=== PATIENT | female | born 1980 | race Caucasian/White ===

== ENCOUNTER 2016-12-03 06:00 | Inpatient (IN) | payer OTHER ==
[~2016-12-03] VITALS: Ht 163 cm; Wt 74.8 kg
[~2016-12-03 06:00] MED LIST: CITRIC ACID/SODIUM CITRATE 30 ML SOLUTION UDCUP PO ONE; METOCLOPRAMIDE HCL 5 MG/ML 2 ML VIAL IVP ONE; RINGERS SOLUTION,LACTATED 1,000 ML IV ONE
[2016-12-03] MEDS ORDERED: METH250T11 PO (06:20)
[2016-12-03] MEDS ORDERED: PREN-154 PO (06:21)
[2016-12-03 06:40] LABS: BASOPHILS # (AUTO) 0.04 K/uL (0.00-0.20); BASOPHILS % (AUTO) 0.4 % (0.0-2.0); EOSINOPHILS # (AUTO) 0.06 K/uL (0.00-0.70); EOSINOPHILS % (AUTO) 0.73 % (1.0-6.0); HEMATOCRIT 34.4 % (36-46); HEMOGLOBIN 11.6 g/dL (12.0-16.0); LYMPHOCYTES # (AUTO) 1.9 K/uL (1.0-4.8); LYMPHOCYTES % (AUTO) 23.8 % (22.0-44.0); MEAN CORPUSCULAR HEMOGLOBIN 30.2 pg (26.0-34.0); MEAN CORPUSCULAR HGB CONC 33.8 G/dL (31.0-37.0); MEAN CORPUSCULAR VOLUME 89 fL (80-100); MONOCYTES # (AUTO) 0.5 K/uL (0.1-1.0); MONOCYTES % (AUTO) 5.8 % (2.0-9.0); NEUTROPHILS # (AUTO) 5.7 K/uL (1.8-7.7); NEUTROPHILS % (AUTO) 69.3 % (40.0-70.0); PLATELET COUNT (AUTO) 190 K/uL (150-450); RED BLOOD CELL COUNT(AUTO) 3.85 MIL/uL (4.00-5.20); RED CELL DISTRIBUTION WIDTH 13.8 % (11.5-14.5); WHITE BLOOD COUNT (AUTO) 8.2 K/uL (4.5-11.0)
[2016-12-03 07:28] VITALS: BP 137/92
[2016-12-03] MEDS ORDERED: FentaNYL CITRATE-PF 100 MCG/2 ML VIAL ONE (11:21)
[2016-12-03] MEDS ORDERED: CeFAZolin 2 GM/DEXTROSE 50 ML IV ONE (11:21)
[2016-12-03] MEDS ORDERED: MORPHINE SULFATE/PF 0.5 MG/ML 10 ML AMP ONE (11:22)
[2016-12-03] MEDS ORDERED: OXYTOCIN 10 UNITS/ML VIAL IM ONE (12:00)
[2016-12-03] MEDS ORDERED: PHENYLEPHRINE HCL 10 MG/ML VIAL IVP ONE (12:00)
[2016-12-03] MEDS ORDERED: KETOROLAC TROMETHAMINE 60 MG/2 ML VIAL IM ONE (12:00)
[2016-12-03] MEDS ORDERED: ONDANSETRON HCL 4 MG/2 ML VIAL IVP ONE (12:00)
[2016-12-03] MEDS ORDERED: NALOXONE HCL 0.4 MG/ML VIAL IVP PRN (13:30)
[2016-12-03] MEDS ORDERED: FentaNYL CITRATE-PF 100 MCG/2 ML VIAL IVP PRN ×4 (13:30)
[2016-12-03] MEDS ORDERED: MEPERIDINE-PF 25 MG/ML SYRINGE IVP PRN (13:30)
[2016-12-03] MEDS ORDERED: DiphenhydrAMINE HCL 50 MG/ML VIAL IVP PRN ×2 (13:30)
[2016-12-03] MEDS ORDERED: ONDANSETRON HCL 4 MG/2 ML VIAL IVP PRN ×2 (13:30)
[2016-12-03] MEDS ORDERED: DEXAMETHASONE SOD PHOS 4 MG/ML VIAL IVP PRN (13:30)
[2016-12-03] MEDS ORDERED: NALBUPHINE HCL 10 MG/ML VIAL IVP PRN ×3 (13:30)
[2016-12-03] MEDS ORDERED: PROMETHAZINE HCL 12.5 MG in SODIUM CHLORIDE 0.9% 50 ML IV PRN (13:30)
[2016-12-03] MEDS ORDERED: GLYCERIN/WITCH HAZEL LEAF 40 PADS JAR TP PRN (14:00)
[2016-12-03] MEDS ORDERED: RINGERS SOLUTION,LACTATED 1,000 ML IV ONE (14:43)
[2016-12-03] MEDS: METHYLDOPA 250 MG TABLET PO SCH (16:27)
[2016-12-03] MEDS: DEXTROSE 5%-0.45% SODIUM CHL 1,000 ML IV SCH (18:00)
[2016-12-03] MEDS: OXYTOCIN 20 UNITS in RINGERS SOLUTION,LACTATED 1,000 ML IV SCH (18:27)
[2016-12-03] MEDS: KETOROLAC TROMETHAMINE 30 MG/ML VIAL IVP SCH (19:44)
[2016-12-03] MEDS ORDERED: OXYGEN THERAPY IH SCH ×4 (20:00)
[2016-12-04] MEDS: OXYTOCIN 20 UNITS in RINGERS SOLUTION,LACTATED 1,000 ML IV SCH (00:45)
[2016-12-04] MEDS: METHYLDOPA 250 MG TABLET PO SCH ×3 (00:45→16:46)
[2016-12-04] MEDS: KETOROLAC TROMETHAMINE 30 MG/ML VIAL IVP SCH (01:46)
[2016-12-04 06:46] LABS: BASOPHILS # (AUTO) 0.03 K/uL (0.00-0.20); BASOPHILS % (AUTO) 0.2 % (0.0-2.0); EOSINOPHILS # (AUTO) 0.03 K/uL (0.00-0.70); EOSINOPHILS % (AUTO) 0.23 % (1.0-6.0); HEMATOCRIT 28.4 % (36-46); HEMOGLOBIN 9.5 g/dL (12.0-16.0); LYMPHOCYTES # (AUTO) 1.4 K/uL (1.0-4.8); LYMPHOCYTES % (AUTO) 12.5 % (22.0-44.0); MEAN CORPUSCULAR HEMOGLOBIN 30.6 pg (26.0-34.0); MEAN CORPUSCULAR HGB CONC 33.3 G/dL (31.0-37.0); MEAN CORPUSCULAR VOLUME 92 fL (80-100); MONOCYTES # (AUTO) 0.4 K/uL (0.1-1.0); MONOCYTES % (AUTO) 3.8 % (2.0-9.0); NEUTROPHILS # (AUTO) 9.5 K/uL (1.8-7.7); NEUTROPHILS % (AUTO) 83.3 % (40.0-70.0); RED BLOOD CELL COUNT(AUTO) 3.09 MIL/uL (4.00-5.20); RED CELL DISTRIBUTION WIDTH 13.5 % (11.5-14.5); WHITE BLOOD COUNT (AUTO) 11.4 K/uL (4.5-11.0)
[2016-12-04] MEDS: DEXTROSE 5%-0.45% SODIUM CHL 1,000 ML IV SCH (07:05)
[2016-12-04] MEDS: OxyCODONE HCL/ACETAMINOPHEN 5-325 MG TABLET PO PRN ×2 (09:20→15:14)
[2016-12-04] MEDS: MAGNESIUM HYDROXIDE SUSPENSION 30 ML UDCUP PO SCH ×2 (10:29→20:43)
[2016-12-04] MEDS ORDERED: IBUP-2070 PO ×2 (22:50→22:57)
[2016-12-04] MEDS ORDERED: DSS100 PO (22:57)
[2016-12-04] MEDS ORDERED: FERR-89 PO (23:03)
[2016-12-05] MEDS: IBUPROFEN 600 MG TABLET PO PRN ×2 (00:22→06:33)
[2016-12-05] MEDS: METHYLDOPA 250 MG TABLET PO SCH ×2 (00:29→07:27)
[2016-12-05] MEDS: OxyCODONE HCL/ACETAMINOPHEN 5-325 MG TABLET PO PRN ×2 (07:27→13:06)
[2016-12-05] MEDS: MAGNESIUM HYDROXIDE SUSPENSION 30 ML UDCUP PO SCH (07:27)
== END 2016-12-05 13:30 | disposition home or self-care (01) | DRG 766 ==
LOC: 4S 06:00 → PREOBSVTOIN 06:11
PROVIDERS: ADMIT Obstetrics & Gynecology; ATTEND Obstetrics & Gynecology
PROC: 10D00Z1 Extraction of Products of Conception, Low, Open Approach (ICD-10-PCS; principal; 2016-12-03)
PROC: 0UB70ZZ Excision of Bilateral Fallopian Tubes, Open Approach (ICD-10-PCS; 2016-12-03)
DX: O34.219 Maternal care for unspecified type scar from previous cesarean delivery (principal); Z3A.39 39 weeks gestation of pregnancy; Z37.0 Single live birth; Z30.2 Encounter for sterilization
CPT/HCPCS: 86850; 86870; 86900; 86901; 87081; 88302; J0690; J1885; J2274; J2370; J2405; J2590; J2765; J3010; J7120